=== PATIENT | male | born 1990 | race Caucasian/White ===

== ENCOUNTER 2023-08-11 09:31 | Emergency (ER) | payer BC, SELFPAY ==
[2023-08-11] VITALS (11 sets, daily range): BP systolic 131–157; BP diastolic 70–98; PULSE 65–88; RESP 18; TEMP 36.6; O2SAT 97–100; BMI 33.5
--- NOTE | 2023-08-11 10:23 | ED_ITS ---
HPI - Headache General Chief Complaint: Headache Stated Complaint: sent by [facility] for ct, headache t-4 Time Seen by Provider: 08/11/23 09:44 Source: patient and RN notes reviewed Mode of arrival: Ambulatory Limitations: no limitations History of Present Illness HPI Narrative: 33-year-old male with no reported medical history who presents with complaint of headache for 4 days which has been slowly worsening. Patient states started on the very top of his head like he hit it 4 days ago, he states he has not had any trauma or injuries. He states it is sort of been gradually moving to the forehead but also little bit occipital. He states he has felt a little dizzy but has not had any issues with movement or ambulation. He denies any fevers he is occasionally felt chilled. He denies any neck or back pain. No chest pain or shortness of breath. No vision changes. Had some nausea and 1 episode of vomiting here in the department today. Denies any issues such as diarrhea or constipation, no incontinence. No numbness tingling or weakness that is new. Patient has not had any syncope. He describes it as gradual onset slowly worsening over time was initially responsive to ibuprofen but is less so. Has also tried Sudafed [id number], drinking fluids and caffeine. Patient states he has not had a history of migraines or persistent headaches. He notes he thought he might have sinus infection but has not had any nasal congestion or cold and cough symptoms. States no daily prescription medications, no prior surgeries. No known drug allergies. Denies any tobacco use, no alcohol use, states he uses marijuana but denies any other recreational drugs. Related Data Allergies Allergy/AdvReac Type Severity Reaction Status Date / Time No Known Allergies Allergy Verified 08/11/23 11:23 Review of Systems Review of Systems ROS Unobtainable: All systems reviewed & are unremarkable except as noted in HPI and below Patient History Social History Smoking Status: Current some day smoker Smoking Status: Current some day smoker Exam Narrative Exam Narrative: GEN: well nourished, well appearing [default value], alert and oriented x [default value], patient appears to be in mild distress. HEENT: Atraumatic, pupils are equal round reactive to light, extraocular movements are intact, nares are clear, TMs are clear with no fluid, there is no conjunctival pallor. Throat is clear without any exudates, erythema, tonsillar enlargement or uvular deviation, no facial droop. No meningeal signs. Full range of motion of the neck. HEART: Regular rate and rhythm without murmur, clicks, rubs. Pulses are equal in upper and lower extremities LUNGS:Lungs clear to auscultation, no wheezes, rales, crackles, chest moves symmetrically ABD:bowel sounds normal, soft, non-tender, no guarding, rebound, rigidity, no masses noted, no hepatosplenomegaly :No CVA tenderness MSCL: Non-tender, no muscle atrophy, muscles strength 5/5 upper and lower extremities, full range of motion, normal gait NEURO:CN 2-12 intact, sensation normal, reflexes 2/4 upper and lower extremities. finger nose finger test normal, heel miller test normal SKIN: No rash, erythema or other skin changes. Initial Vital Signs Initial Vital Signs: Vital Signs Temperature 97.9 F 08/11/23 09:39 Pulse Rate 75 08/11/23 09:39 Respiratory Rate 18 08/11/23 09:39 Blood Pressure 142/85 H 08/11/23 09:39 Pulse Oximetry 100 08/11/23 09:39 Oxygen Delivery Method Room Air 08/11/23 09:39 Course Orders Ordered: ED Orders 08/11/23 09:45 Urinalysis and Microscopic Stat 08/11/23 10:53 Covid-19 + FLU A/B + RSV - PCR Stat 08/11/23 11:16 CT head/brain wo con Stat 08/11/23 11:56 CBC Auto Diff [Complete Blood Count AUTO DIFF] Stat CMP [Comprehensive Metabolic Panel] Stat Lipase Stat Ondansetron HCl (Ondansetron 4 Mg/2 Ml Inj) 4 mg IV NOW PRN PRN Reason: Nausea And Vomiting Ondansetron HCl (Ondansetron 4 Mg Odt) 4 mg SL NOW PRN PRN Reason: Nausea And Vomiting Sodium Chloride (Sodium Chloride 0.9% Flush) 10 ml IV BID AYDIN Last Admin: 08/11/23 12:05 Dose: 10 ml Documented By: ROSE MARIE Sodium Chloride (Sodium Chloride 0.9% Flush) 10 ml IV PRN PRN PRN Reason: Flush Last Admin: 08/11/23 12:06 Dose: 10 ml Documented By: ROSE MARIE Discontinued Medications Sodium Chloride (Normal Saline 0.9%) 1,000 mls @ 1,000 mls/hr IV BOLUS ONE Stop: 08/11/23 12:15 Last Admin: 08/11/23 12:00 Dose: 1,000 mls/hr Documented By: ROSE MARIE Acetaminophen (Ofirmev) 1,000 mg in 100 mls @ 400 mls/hr IV NOW ONE Stop: 08/11/23 11:35 Last Infusion: 08/11/23 12:31 Dose: Infused Documented By: ROSE MARIE Admin: 08/11/23 12:00 Dose: 400 mls/hr Documented By: ROSE MARIE Vital Signs Vital signs: Vital Signs - 8 hr 08/11/23 09:39 08/11/23 09:49 08/11/23 09:50 Temperature 97.9 F Pulse Rate 75 70 Respiratory Rate 18 Blood Pressure 142/85 H 142/85 H Pulse Oximetry 100 97 Oxygen Delivery Method Room Air 08/11/23 09:50 08/11/23 10:00 08/11/23 10:00 Temperature Pulse Rate 65 68 Respiratory Rate Blood Pressure 141/86 H Pulse Oximetry 100 98 Oxygen Delivery Method 08/11/23 10:30 08/11/23 10:30 08/11/23 10:48 Temperature Pulse Rate 66 Respiratory Rate Blood Pressure 131/91 H 150/98 H Pulse Oximetry 99 Oxygen Delivery Method 08/11/23 10:48 08/11/23 11:00 08/11/23 11:00 Temperature Pulse Rate 72 74 Respiratory Rate Blood Pressure 145/90 H Pulse Oximetry 99 100 Oxygen Delivery Method 08/11/23 11:30 08/11/23 11:31 08/11/23 11:31 Temperature Pulse Rate 88 77 Respiratory Rate Blood Pressure 150/87 H Pulse Oximetry 98 99 Oxygen Delivery Method 08/11/23 12:00 08/11/23 12:00 Temperature Pulse Rate 71 Respiratory Rate Blood Pressure 157/80 H Pulse Oximetry 100 Oxygen Delivery Method MDM - Headache Lab Data 08/11/23 11:56 08/11/23 11:56 Labs: Lab Results 08/11/23 08/11/23 08/11/23 Range/Units 09:45 10:53 11:56 WBC 14.6 H (4.5-11.0) X10^3/uL RBC 5.22 (4.5-5.9) X10^6/uL Hgb 15.5 (13.5-17.5) g/dL Hct 45.2 (41-53) % MCV 86.7 (80-100) fL MCH 29.6 (26-34) PG MCHC 34.2 (30-36) % RDW 13.0 (11.6-14.8) % Plt Count 299 (150-400) X10^3/uL Neut % (Auto) 87.6 H (50-75) % Lymph % (Auto) 7.5 L (25-40) % [place] % (Auto) 4.6 (3-14) % Eos % (Auto) 0.1 L (2-4) % Baso % (Auto) 0.2 (0-2) % Neut # (Auto) 44029 H (8547-3765) /uL Lymph # (Auto) 1100 (6210-8765) /uL [place] # (Auto) 700 (0-900) /uL Eos # (Auto) 0 (0-450) /uL Baso # (Auto) 0 (0-100) /uL Sodium 137 (137-145) mmol/L Potassium 4.3 (3.4-5.1) mmol/L Chloride 101 (98-107) mmol/L Carbon Dioxide 31 (22-32) mmol/L BUN 15 (9-20) mg/dL Creatinine 0.62 L (0.66-1.25) mg/dL Estimated GFR > 60 (>60) mL/min BUN/Creatinine Ratio 24.2 H (6-22) Glucose 104 H (70-100) mg/dL Calcium 9.4 (8.4-10.2) mg/dL Total Bilirubin 0.8 (0.2-1.3) mg/dL AST 31 (17-59) IU/L ALT 38 (<50) IU/L Alkaline Phosphatase 63 (38-126) U/L Total Protein 7.5 (6.3-8.2) g/dL Albumin 4.8 (3.5-5.0) g/dL Globulin 2.7 (1.7-4.1) g/dL Albumin/Globulin Ratio 1.8 (1.0-2.8) Lipase 30 (23-300) U/L Urine Color Yellow Urine Appearance Cloudy Urine pH 7.5 (4.5-8.0) Ur Specific [place] 1.015 (1.000-1.035) Urine Protein Negative (Negative) Urine Glucose (UA) Negative (Negative) g/dL Urine Ketones Negative (NEGATIVE) Urine Occult Blood Negative (Negative) Urine Nitrate Negative (Negative) Urine Bilirubin Negative (NEGATIVE) Urine Urobilinogen 0.2 (0.2) E.U./dL Ur Leukocyte Esterase Negative (NEGATIVE) Urine RBC None seen (0-5/HPF) Urine WBC None seen (0-5/HPF) Ur Squamous Epith Cells None seen (0-5/HPF) Amorphous Sediment 4+ Urine Bacteria Few (2-10) H (None) Ur Culture Indicated? Cult not indicated Vol Urine Centrifuged 10ml (spun) SARS-CoV-2 (PCR) Negative (Negative) Influenza A (RT-PCR) Flu a negative (NEGATIVE) Influenza B (RT-PCR) Flu b negative (NEGATIVE) RSV (PCR) Negative (Negative) MDM Narrative Medical decision making narrative: 33-year-old male with gradual onset headache that he describes as the top of his head and then frontal and a little bit occipital, he is noted some chills and felt slightly dizzy but had not had any issues with ambulation or movement or any other neurologic changes. Patient has had ibuprofen which initially was helpful but became less so no history of migraines. Patient's neurologic exam is normal, no obvious infectious symptoms. Vitals are overall appropriate. Patient was seen in walk-in clinic and referred here. Head CT no acute change. Labs white count of 14.6 normal hemoglobin, platelets, predominance of neutrophils. Electrolytes are normal renal functions appropriate glucose is 104 LFTs are negative. UA shows few bacteria otherwise negative. COVID/influenza/RSV negative Patient received fluids and Tylenol as well as oral Zofran and states he states he feels much better. Was sleeping initially when I came in the room. Reviewed with patient appropriate for discharge home can continue with ibuprofen/Tylenol as needed discussed follow up and return precautions. Discharge Plan Departure Patient Disposition: Home Clinical Impression: Headache Instructions: DI for Headache Activity Restrictions/Additional Instructions: Follow up for recheck as needed. I hope you continue to feel improved. You may continue with ibuprofen up to 600 mg every 6 hours and/or Tylenol up to a 1000 mg every 6 hours as needed. Continue to make sure you are hydrating regularly. If you develop fevers, rapidly worsening headache, persistent vomiting, altered mental status, numbness tingling or weakness, difficulty with movement, sudden vision changes or other new or concerning changes please return to the emergency department Stand Alone Forms: Patient Portal/API, Work Release Note
--- NOTE | 2023-08-11 10:55 | PC.NURSE ---
Pt vomited in room, given zofran SL.
--- NOTE | 2023-08-11 11:16 | DI.CT.S_ITS ---
PROCEDURE: CT HEAD/BRAIN WO CON INDICATIONS: jackson x 4 days, no hx migraines TECHNIQUE: Noncontrast 4.5 mm thick angled axial sections acquired from the foramen magnum to the vertex, with coronal and sagittal reformats. For radiation dose reduction, the following was used: automated exposure control, adjustment of mA and/or kV according to patient size. COMPARISON: None. FINDINGS: Image quality: Diagnostic CSF spaces: Basal cisterns are patent. Lateral ventricles are symmetric. Volume: Generally maintained. Brain: No acute hemorrhage. No gross loss of christensen-white differentiation. On axial images, possible crowding of the foramen magnum, however without tonsillar ectopia seen on sagittal images on this nondedicated study. Craniofacial structures: Unremarkable partially visualized craniofacial structures IMPRESSION: No acute intracranial abnormality. If there is high concern for parenchymal pathology, consider further evaluation with MRI. Dictated by: Thierry Godinez M.D. on 08/11/2023 at 11:43 Approved by: Thierry Godinez M.D. on 08/11/2023 at 11:45
[2023-08-11 11:33] LABS: Influenza A - CEPHEID Flu A NEGATIVE (NEGATIVE); Influenza B - CEPHEID Flu B NEGATIVE (NEGATIVE); Respiratory Syncytial Virus Negative (Negative)
[2023-08-11 11:35] LABS: COVID-19 CEPHEID 4-PLEX PCR Negative (Negative)
[2023-08-11] MEDS: SODIUM CHLORIDE 0.9% 1,000 ML 1000 ML IV (12:00)
[2023-08-11] MEDS: ACETAMINOPHEN IV 1,000 MG/100 ML VIAL 400 MG IV (12:00)
[2023-08-11 12:05] LABS: Add Manual Diff / Slide Review NO; Basophils Absolute Auto 0 /uL (0-100); Basophils Percent Auto 0.2 % (0-2); Eosinophils Absolute Auto 0 /uL (0-450); Eosinophils Percent Auto 0.1 % (2-4); Hematocrit 45.2 % (41-53); Hemoglobin 15.5 g/dL (13.5-17.5); Lymphocytes Absolute Auto 1100 /uL (1100-4500); Lymphocytes Percent Auto 7.5 % (25-40); Mean Corpuscular HGB Conc 34.2 % (30-36); Mean Corpuscular Hemoglobin 29.6 PG (26-34); Mean Corpuscular Volume 86.7 fL (80-100); Monocytes Absolute Auto 700 /uL (0-900); Monocytes Percent Auto 4.6 % (3-14); Neutrophils Absolute Auto 12800 /uL (1500-7000); Neutrophils Percent Auto 87.6 % (50-75); Platelet Count 299 X10^3/uL (150-400); Red Blood Cell Count 5.22 X10^6/uL (4.5-5.9); White Blood Cell Count 14.6 X10^3/uL (4.5-11.0)
[2023-08-11] MEDS: SODIUM CHLORIDE 0.9% FLUSH 10 ML IV ×2 (12:05→12:06)
[2023-08-11 12:29] LABS: Alanine Aminotransferase 38 IU/L (<50); Albumin 4.8 g/dL (3.5-5.0); Albumin Globulin Ratio 1.8 (1.0-2.8); Alkaline Phosphatase 63 U/L (38-126); Aspartate Aminotransferase 31 IU/L (17-59); BUN Creatinine Ratio 24.2 (6-22); Bilirubin Total 0.8 mg/dL (0.2-1.3); Blood Urea Nitrogen 15 mg/dL (9-20); Calcium 9.4 mg/dL (8.4-10.2); Carbon Dioxide 31 mmol/L (22-32); Chloride 101 mmol/L (98-107); Estimated Glomerular Filt Rate > 60 mL/min (>60); Globulin 2.7 g/dL (1.7-4.1); Glucose 104 mg/dL (70-100); HEMOLYSIS 22 (0-50); Lipase 30 U/L (23-300); Potassium 4.3 mmol/L (3.4-5.1); Sodium 137 mmol/L (137-145); Total Protein 7.5 g/dL (6.3-8.2)
[2023-08-11 12:33] LABS: Bilirubin Urine UA NEGATIVE (NEGATIVE); Color Urine UA YELLOW; Glucose Urine UA NEGATIVE (Negative); Ketones Urine UA NEGATIVE (NEGATIVE); Leukocyte Esterase Urine UA NEGATIVE (NEGATIVE); Nitrite Urine UA NEGATIVE (Negative); Occult Blood Urine UA NEGATIVE (Negative); Protein Urine UA NEGATIVE (Negative); Specific Gravity Urine UA 1.015 (1.000-1.035); Urobilinogen Urine UA 0.2 E.U./dL (0.2); pH Urine UA 7.5 (4.5-8.0)
[2023-08-11 12:53] LABS: Appearance Urine UA CLOUDY
[2023-08-11 12:54] LABS: Amorphous Sediment Urine 4+; Bacteria Urine Few (2-10); RBC Urine None Seen (0-5/HPF); Squamous Epithelial Cell Urine None Seen (0-5/HPF); Urine Volume 10mL (spun); WBC Urine None Seen (0-5/HPF)
[2023-08-11 12:55] LABS: Culture Indicated Urine Cult Not Indicated
== END 2023-08-11 13:35 | disposition home or self-care (01) ==
PROVIDERS: Emergency Provider Emergency Medicine
DX: R51.9 Headache, unspecified (principal); R11.2 Nausea with vomiting, unspecified; Z20.822 Contact with and (suspected) exposure to COVID-19
CPT/HCPCS: 0241U; 36415; 70450; 80053; 81001; 83690; 85025; 96365; 99284; J0136

== ENCOUNTER → 2024-06-12 14:57 | Outpatient (CLI) | payer BC, SELFPAY | PROVIDERS: Visit Provider Physician Assistant Surgical | DX: R05.1 Acute cough (principal) | CPT/HCPCS: 87070 ==

== ENCOUNTER → 2024-10-13 15:51 | Outpatient (CLI) | payer BC, SELFPAY | PROVIDERS: Visit Provider Student in an Organized Health Care Education/Training Program | DX: J02.9 Acute pharyngitis, unspecified (principal) | CPT/HCPCS: 87070; 87147 ==

== ENCOUNTER → 2024-12-18 13:43 | Outpatient (CLI) | payer BC, SELFPAY | PROVIDERS: Visit Provider Nurse Practitioner Family | DX: J35.1 Hypertrophy of tonsils (principal) | CPT/HCPCS: 87070; 87077; 87147 ==